=== PATIENT | female | born 1960 | race Caucasian/White ===

== ENCOUNTER → 2018-07-27 | Outpatient (CLI) | payer BC ==
--- NOTE | 2018-07-30 10:12 | MM ---
Reason for exam: screening (asymptomatic). Last mammogram was performed 2 years and 8 months ago. History: Patient is postmenopausal. Family history of breast cancer. Physical Findings: A clinical breast exam by your physician is recommended on an annual basis and results should be correlated with mammographic findings. MG Screening Mammo w CAD Bilateral CC and MLO view(s) were taken. Prior study comparison: December 08, 2015, bilateral MG screening mammo w CAD. November 19, 2014, bilateral MG screening mammo w CAD. There are scattered fibroglandular densities. There is no discrete abnormality. No significant changes when compared with prior studies. ASSESSMENT: Negative, BI-RAD 1 RECOMMENDATION: Routine screening mammogram of both breasts in 1 year.
== END | disposition home or self-care (01) ==
LOC: RADMAMWWP 11:04
PROVIDERS: ATTEND Internal Medicine
DX: Z12.31 Encounter for screening mammogram for malignant neoplasm of breast (principal)
CPT/HCPCS: 77067

== ENCOUNTER → 2020-03-06 | Outpatient (CLI) | payer BC ==
--- NOTE | 2020-03-06 09:33 | US ---
EXAMINATION TYPE: US liver DATE OF EXAM: 03/06/2020 COMPARISON: NONE CLINICAL HISTORY: R74.8 Abnormal liver enzymes. EXAM MEASUREMENTS: Liver Length: 16.4 cm Gallbladder Wall: 0.1 cm CBD: 0.3 cm Right Kidney: 9.6 x 4.4 5.0 cm Thick body habitus with extensive overlying bowel gas, technically difficult study. Pancreas: portions visualized wnl, partially obscured by bowel gas. There may be some moderate fatty atrophy. Liver: Increased attenuation, decreased visualization of vessels suggestive of fatty infiltrate Gallbladder: wnl as seen, partially obscured by overlying bowel gas Evidence for sonographic Nevarez's sign: no CBD: wnl Right Kidney: Superior pole obscured by overlying bowel gas IMPRESSION: 1. Moderate fatty infiltration liver. 2. No suspicious acute ultrasound abnormality is identified. 3. There is limitation due to the volume of bowel gas present and body habitus.
== END | disposition home or self-care (01) ==
LOC: RADUSWWP 08:53
PROVIDERS: ATTEND Internal Medicine
DX: K76.0 Fatty (change of) liver, not elsewhere classified (principal); R14.3 Flatulence
CPT/HCPCS: 76705

== ENCOUNTER → 2021-10-29 | Outpatient (CLI) | payer BC ==
--- NOTE | 2021-10-31 13:37 | US ---
EXAMINATION TYPE: US transvaginal DATE OF EXAM: 10/29/2021 COMPARISON: NONE CLINICAL HISTORY: 61-year-old female N95.0 Postmenopausal bleeding. TECHNIQUE: Transvaginal (TV). FINDINGS: EXAM MEASUREMENTS: Uterus: 6.9 x 3.8 x 4.3 cm Endometrial Stripe: 1.0 cm 1. Uterus: Anteverted. Myometrial assessment is limited due to postioning. There are numerous clus tered cysts at the cervix measuring up to 1.0 cm. 2. Endometrium: Thickened for a postmenopausal female with bleeding. 3. Right Ovary: Obscured by overlying bowel gas 4. Left Ovary: Obscured by overlying bowel gas 5. Bilateral Adnexa: wnl 6. Posterior cul-de-sac: wnl IMPRESSION: 1. Numerous clustered cysts at the cervix measuring up to 1.0 cm most likely numerous cervical naboth janie cysts. Correlate with Pap smear results to exclude the less likely possibility of an etiology suc h as adenoma malignum. 2. Mild endometrial thickening up to 1.0 cm. In a postmenopausal female with bleeding, endometrial hy perplasia or endometrial carcinoma should be excluded. 3. Unable to identify either ovary.
== END | disposition home or self-care (01) ==
LOC: RADUSWWP 16:42
PROVIDERS: ATTEND Internal Medicine
DX: N95.0 Postmenopausal bleeding (principal)
CPT/HCPCS: 76830

== ENCOUNTER → 2021-12-10 | Outpatient (CLI) | payer BC ==
[2021-12-10 17:39] LABS: Basophils # (A) 0.04 X 10*3/uL (0.00-0.10); Basophils % (A) 0.7 %; Eosinophils # (A) 0.19 X 10*3/uL (0.04-0.35); Eosinophils % (A) 3.2 %; HCT 41.8 % (37.2-46.3); HGB 13.9 g/dL (12.0-15.0); Immature Grans, Automated 0.2 %; Lymphocytes # (A) 1.66 X 10*3/uL (0.90-5.00); Lymphocytes % (A) 28.1 %; MCH 30.5 pg (27.0-32.0); MCHC 33.3 g/dL (32.0-37.0); MCV 91.9 fL (80.0-97.0); Mean Platelet Volume 10.7 fL (9.5-12.2); Monocytes # (A) 0.67 X 10*3/uL (0.20-1.00); Monocytes % (A) 11.4 %; NRBC Per 100 WBC 0 /100 WBCS (0.0-0.0); Neutrophils # (A) 3.33 X 10*3/uL (1.80-7.70); Neutrophils % (A) 56.4 %; Platelet Count 228 X 10*3/uL (140-440); RBC 4.55 X 10*6/uL (4.10-5.20); RDW 12.9 % (11.5-14.5)
== END | disposition home or self-care (01) ==
LOC: LABPAT 10:42
PROVIDERS: ATTEND Obstetrics & Gynecology
DX: Z01.812 Encounter for preprocedural laboratory examination (principal)
CPT/HCPCS: 85025; 93005

== ENCOUNTER 2021-12-14 06:15 | Day surgery (SDC) | payer BC ==
[2021-12-10 15:54] VITALS: BMI 33.8
--- NOTE | 2021-12-13 07:35 | P.HPOB ---
History of Present Illness H&P Date: 12/13/21 Chief Complaint: Postmenopausal bleeding and abnormal endometrial thickening on ultrasound This patient is a pleasant 61-year-old 3 para 3 female who is referred to me by Dr. Iniguez for evaluation of postmenopausal bleeding and abnormal endometrial thickening. Patient states that about 2 months ago she began bleeding. She's been menopausal for many years. Transvaginal ultrasound shows an endometrial thickening to 1.0 cm. She now presents for hysteroscopy D&C for further evaluation. Review of Systems Genitourinary: Reports as per HPI, Reports abnormal vaginal bleeding Past Medical History Past Medical History: Hyperlipidemia, Hypertension Additional Past Medical History / Comment(s): hx ulcers 45 yrs ago, post menopause bleeding History of Any Multi-Drug Resistant Organisms: None Reported Past Surgical History: Appendectomy, Orthopedic Surgery Additional Past Surgical History / Comment(s): lt shoulder surgery(fx) with screw placement and rotator cuff, removal of thyroglossal cyst, D&C Past Anesthesia/Blood Transfusion Reactions: No Reported Reaction Smoking Status: Never smoker Past Alcohol Use History: None Reported Past Drug Use History: None Reported - Past Family History Sister(s) Family Medical History: Cancer Medications and Allergies Home Medications Medication Instructions Recorded Confirmed Type Aspirin 81 mg PO DAILY 12/16/13 12/10/21 History Atenolol [Tenormin] 12.5 mg PO HS 12/16/13 12/10/21 History Lisinopril-Hctz 10-12.5 mg 1 each PO DAILY 12/16/13 12/10/21 History [Zestoretic 10-12.5] Atorvastatin [Lipitor] 20 mg PO HS 12/10/21 12/10/21 History Allergies Allergy/AdvReac Type Severity Reaction Status Date / Time No Known Allergies Allergy Verified 12/10/21 15:44 Exam - OBG Physical Exam Abdomen: bowel sounds normal, no diffuse tenderness, no bruit present, no guarding noted, no hepatomegaly, no splenomegaly, no mass Vulva: both: normal Vagina: normal moisture, no discharge Cervix: no lesion, no discharge Results Transvaginal ultrasound on October 29 showed endometrium to be 1.0 cm Assessment and Plan Assessment: This is a pleasant 61-year-old 3 para 3 female with 2 months of postmenopausal bleeding and abnormal thickening of the endometrium on transvaginal ultrasound. Plan is hysteroscopy, D&C for further evaluation. Patient had a long discussion about surgery and risks and risks of infection, bleeding, possible uterine perforation. All the patient's questions are answered written consent is obtained. (1) Postmenopausal bleeding Status: Acute Code(s): N95.0 - POSTMENOPAUSAL BLEEDING SNOMED Code(s): 76652589 (2) Endometrial thickening on ultrasound Status: Acute Code(s): R93.89 - ABNORMAL FINDINGS ON DX IMAGING OF OTH BODY STRUCTURES SNOMED Code(s): 485777324
[~2021-12-14 06:15] MED LIST: DEXAMETHASONE SOD PHOSPHATE 4 MG/ML 1 ML VIAL IV ONE; LACTATED RINGERS 1,000 ML IV SCH; LIDOCAINE 1% (10MG/ML) FOR IV START INTRADERMA PRN; Pre Op ABX Message 1 EACH MISC MISCELLANE ONE
[2021-12-14] MEDS ORDERED: HYDROmorphone 0.5 MG/0.5 ML SYRINGE IVP PRN (07:00)
[2021-12-14] MEDS ORDERED: ONDANSETRON 4 MG/2 ML VIAL IVP PRN (07:00)
[2021-12-14] MEDS ORDERED: KETOROLAC 15 MG/ML 1 ML VIAL ONE (07:19)
[2021-12-14] MEDS ORDERED: MIDAZOLAM 2 MG/2 ML VIAL ONE (07:19)
[2021-12-14] MEDS ORDERED: PROPOFOL 10 MG/ML 20 ML VIAL IV ONE (07:19)
[2021-12-14] MEDS ORDERED: fentaNYL (PF) 50 MCG/ML 2 ML AMP ONE (07:19)
[2021-12-14] MEDS ORDERED: LIDOCAINE 2% INJ 20 MG/ML (2 ML VIAL) ONE (07:19)
--- NOTE | 2021-12-14 07:56 | P.OP ---
Date of Procedure: 12/14/21 Preoperative Diagnosis: #1: Postmenopausal bleeding. #2: Abnormal endometrial thickening on ultrasound Postoperative Diagnosis: #1: Same. #2: Endometrial polyp Procedure(s) Performed: #1: Hysteroscopy. #2: Dilation and curettage. #3: Polypectomy Anesthesia: other (LMA) Surgeon: Enrique Driscoll Estimated Blood Loss (ml): 10 Urine output (ml): 30 Pathology: other (Uterine curettings) Condition: stable Disposition: PACU Indications for Procedure: Please see dictated H&P for intimate details of this patient's admission. Brief summary this is a pleasant 61-year-old 3 para 3 female with 2 months of postmenopausal bleeding ultrasound demonstrating thickening to 1 cm. Patient now presents for hysteroscopy D&C for further evaluation. Patient understands this surgery and risks and risks of infection, bleeding, possible uterine perforation. All the patient's questions are answered and a written consent is obtained. Operative Findings: This patient had a 1-1-1/2 cm endometrial polyp. Rest of the cavity did appear atrophic. Description of Procedure: This patient is taken to the operating room where she is laid in the supine position. She subsequently undergoes general anesthesia without incident. With an adequate level of anesthesia she's placed in dorsal lithotomy position. She has a vaginal perineal prep and drape. Examination under anesthesia shows a normal size uterus. Bladder is then drained for 30 mL of clear urine. Weighted speculum was placed in the posterior vagina and the anterior lip of the cervix is gravid and Allis clamp. The cervix a little stenotic using a hemostat this is opened easily. I then used the uterine sound the uterus is sounded to 8 cm. Gentle dilation of the cervix is then done to allow the hysteroscope easily and uterine cavity. Using saline solution hysteroscopy is performed. Appears to be a large polyp in the central cavity. The rest of the cavity does appear atrophic. The hysteroscope was then removed. The cervix is dilated more to allow a polyp forceps into the uterine cavity. Multiple passes are made with the polyp forceps and a large polyp was removed appears to be intact. This done a vigorous 4 quadrant thorough curettage is then done. This point the procedure is ended. The Allis clamp and weighted speculum removed. All counts are correct 3. There are no complications. Patient is awakened from anesthesia and taken recovery room satisfactory condition.
[2021-12-14 08:01] VITALS: TEMP 97.1
[2021-12-14 09:05] VITALS: RESP 18
[2021-12-14 09:06] VITALS: BP 107/74; PULSE 61
== END 2021-12-14 09:24 | disposition home or self-care (01) ==
LOC: OR 06:15
PROVIDERS: ATTEND Obstetrics & Gynecology
DX: C54.1 Malignant neoplasm of endometrium (principal); N84.0 Polyp of corpus uteri; N95.0 Postmenopausal bleeding; I10 Essential (primary) hypertension; E78.5 Hyperlipidemia, unspecified; Z90.49 Acquired absence of other specified parts of digestive tract; Z80.9 Family history of malignant neoplasm, unspecified; Z79.82 Long term (current) use of aspirin; Z79.899 Other long term (current) drug therapy
CPT/HCPCS: 88305; 58558; J2250; J1100; J2405; J3010; J1885; J2704; J2001

== ENCOUNTER → 2022-01-14 | Outpatient (CLI) | payer BC ==
--- NOTE | 2022-01-14 15:08 | XR ---
EXAMINATION TYPE: XR chest 2V DATE OF EXAM: 01/14/2022 COMPARISON: None INDICATION: Malignant neoplasm of the endometrium presurgical clearance TECHNIQUE: Frontal and lateral views of the chest are obtained. FINDINGS: The heart size is normal. The pulmonary vasculature is normal. The lungs are clear. Radiopaque foreign body overlies the glenohumeral junction on the AP projection . IMPRESSION: 1. No acute pulmonary process.
--- NOTE | 2022-01-14 21:32 | CT ---
EXAMINATION TYPE: CT abdomen pelvis w con CT DLP: 1187.3 mGycm, Automated exposure control for dose reduction was used. DATE OF EXAM: 01/14/2022 5:04 PM COMPARISON: None CLINICAL INDICATION:Female, 61 years old with history of C54.1 MALIGNANT NEOPLASM OF ENDOMETRIUM; MAL IGNANT NEOPLASM OF ENDOMETRIUM TECHNIQUE: Axial CT of the abdomen and pelvis. Sagittal and coronal reformats were created on a [employer] workstation. Contrast used:100ml mL of Isovue 300 with IV Contrast, Oral contrast used: with Oral Contrast FINDINGS: LOWER CHEST: Unremarkable ABDOMEN LIVER: Diffusely hypoattenuating parenchyma. GALLBLADDER AND BILE DUCTS: Unremarkable. PANCREAS: Unremarkable. SPLEEN: Unremarkable. ADRENAL GLANDS: Unremarkable. KIDNEYS AND URETERS: No evidence of hydronephrosis or renal calculus. The ureters are unremarkable. PELVIS BLADDER: Unremarkable REPRODUCTIVE: Endometrium is suboptimally visualized. Slightly asymmetric enlarged left ovary versus the right. ABDOMEN & PELVIS STOMACH AND BOWEL: There is a second portion duodenal diverticulum. Multiple colonic diverticula. No evidence of bowel obstruction. PERITONEUM: No evidence of pneumoperitoneum or free fluid. VASCULATURE: No evidence of aortic aneurysm. MUSCULOSKELETAL: No acute osseous abnormalities LYMPH NODES: No gross evidence for lymphadenopathy. SOFT TISSUE/ABDOMINAL WALL: Unremarkable IMPRESSION: 1. Grossly unremarkable appearance of the uterus. There is no evidence for metastatic disease through out the abdomen or pelvis. 2. Colonic diverticulosis. 3. Duodenal diverticulum. 4. Hepatic steatosis.
== END | disposition home or self-care (01) ==
LOC: RADCTMAIN 14:35
PROVIDERS: ATTEND Obstetrics & Gynecology
DX: C54.1 Malignant neoplasm of endometrium (principal)
CPT/HCPCS: 71046; 74177; Q9967

== ENCOUNTER → 2022-02-15 | Outpatient (CLI) | payer BC ==
--- NOTE | 2022-02-16 09:49 | MM ---
Reason for Exam: Screening (asymptomatic). Last mammogram was performed 3 year(s) and 6 month(s) ago. Patient History: Menarche at age 13. First Full-Term at age 31. Late child-bearing (after 31). Left ovary removed at age 61. Right ovary removed at age 61. Hysterectomy at age 61. Postmenopausal. Endometrial cancer, age 61. Risk Values: Fifi 5 year model risk: 2.0%. NCI Lifetime model risk: 10.0%. Prior Study Comparison: 11/19/2014 Bilateral Screening Mammogram, [facility]. 12/08/2015 Bilateral Screening Mammogram, [facility]. 07/27/2018 Bilateral Screening Mammogram, [facility]. Tissue Density: There are scattered fibroglandular densities. Findings: Analyzed By CAD. There is no suspicious group of microcalcifications or new suspicious mass in either breast. Overall Assessment: Negative, BI-RAD 1 Management: Screening Mammogram of both breasts in 1 year. A clinical breast exam by your physician is recommended on an annual basis and results should be correlated with mammographic findings. Electronically signed and approved by: Rickie Alejo M.D.
== END | disposition home or self-care (01) ==
LOC: RADMAMWWP 07:48
PROVIDERS: ATTEND Internal Medicine
DX: Z12.31 Encounter for screening mammogram for malignant neoplasm of breast (principal)
CPT/HCPCS: 77063; 77067

== ENCOUNTER → 2022-10-19 | Outpatient (CLI) | payer BC ==
[2022-10-19 15:23] LABS: % Iron Saturation 26.03 (12.00-45.00); Ferritin 95.7 ng/mL (10.0-291.0)
[2022-10-19 15:36] LABS: Albumin 4.3 g/dL (3.8-4.9); Albumin/Globulin Ratio 1.19 (1.60-3.17); Anion Gap 15.5 mmol/L (10.00-18.00); BUN/Creat Ratio 11.78 Ratio (12.00-20.00); Blood Urea Nitrogen 10.6 mg/dL (9.0-27.0); Carbon Dioxide 23.5 mmol/L (20.0-27.5); Globulin 3.6 g/dL (1.6-3.3); Potassium 5.3 mmol/L (3.5-5.5); Total Bilirubin 0.6 mg/dL (0.30-1.20); Total Protein 7.9 g/dL (6.2-8.2)
[2022-10-19 15:56] LABS: Hepatitis C IgG Antibody Nonreactive (Nonreactive)
[2022-10-19 16:43] LABS: Ceruloplasmin 23.9 mg/dL (20.0-60.0)
[2022-10-19 18:15] LABS: Hepatitis B Surface Antigen Nonreactive (Nonreactive)
== END | disposition home or self-care (01) ==
LOC: LABWHC1 09:36
PROVIDERS: ATTEND Internal Medicine Gastroenterology
DX: R74.01 Elevation of levels of liver transaminase levels (principal)
CPT/HCPCS: 36415; 80053; 82103; 82390; 82728; 83540; 83550; 86038; 86803; 87340

== ENCOUNTER → 2022-11-09 | Outpatient (CLI) | payer BC ==
--- NOTE | 2022-11-09 13:44 | US ---
EXAMINATION TYPE: US liver DATE OF EXAM: 11/09/2022 COMPARISON: US CLINICAL INDICATION: Female, 62 years old with history of R74.01 ELEVATION OF LEVELS OF LIVER TRANSAM INASE L; Abnormal LFT's TECHNIQUE: Multiple sonographic images of the right upper quadrant are obtained. 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 Mild hepatomegaly.
== END | disposition home or self-care (01) ==
LOC: RADUSWWP 08:41
PROVIDERS: ATTEND Internal Medicine Gastroenterology
DX: R16.0 Hepatomegaly, not elsewhere classified (principal); R74.01 Elevation of levels of liver transaminase levels
CPT/HCPCS: 76705

== ENCOUNTER → 2023-02-22 | Outpatient (CLI) | payer BC ==
--- NOTE | 2023-02-23 08:50 | MM ---
Reason for Exam: Screening (asymptomatic). Last mammogram was performed 1 year(s) and 1 month(s) ago. Patient History: Menarche at age 13. First Full-Term at age 31. Late child-bearing (after 31). Left ovary removed at age 61. Right ovary removed at age 61. Hysterectomy at age 61. Postmenopausal. Endometrial cancer, age 61. Risk Values: Fifi 5 year model risk: 2.0%. NCI Lifetime model risk: 9.7%. Prior Study Comparison: 12/08/2015 Bilateral Screening Mammogram, [facility]. 07/27/2018 Bilateral Screening Mammogram, [facility]. 02/15/2022 Bilateral MG 3D screening mammo w/cad, [facility]. Tissue Density: The breast tissue is almost entirely fat. Findings: Analyzed By CAD. There is no suspicious group of microcalcifications or new suspicious mass in either breast. Overall Assessment: Negative, BI-RAD 1 Management: Screening Mammogram of both breasts in 1 year. . Patient should continue monthly self-breast exams. A clinical breast exam by your physician is recommended on an annual basis. This exam should not preclude additional follow-up of suspicious palpable abnormalities. Note on Fifi scores and lifetime risk: 1. A Fifi score greater than 3% is considered moderate risk. If this is the case, consider specialist referral to assess eligibility for a risk reducing agent. 2. If overall lifetime risk for the development of breast cancer is 20% or higher, the patient may qualify for future screening with alternating mammogram and breast MRI. Electronically signed and approved by: Enrique Rangel M.D. Radiologis
== END | disposition home or self-care (01) ==
LOC: RADMAMWWP 15:43
PROVIDERS: ATTEND Internal Medicine
DX: Z12.31 Encounter for screening mammogram for malignant neoplasm of breast (principal); Z78.0 Asymptomatic menopausal state
CPT/HCPCS: 77067

== ENCOUNTER → 2024-02-29 | Outpatient (CLI) | payer BC ==
--- NOTE | 2024-03-04 09:38 | MM ---
Reason for Exam: Screening (asymptomatic). Last screening mammogram was performed 12 month(s) ago. Patient History: Menarche at age 13. First Full-Term at age 31. Late child-bearing (after 31). Left ovary removed at age 61. Right ovary removed at age 61. Hysterectomy at age 61. Postmenopausal. Endometrial cancer, age 61. Risk Values: Fifi 5 year model risk: 2.1%. NCI Lifetime model risk: 9.4%. Prior Study Comparison: 07/27/2018 Bilateral Screening Mammogram, [facility]. 02/15/2022 Bilateral MG 3D screening mammo w/cad, [facility]. 02/22/2023 Bilateral MG screening mammo w CAD, [facility]. Tissue Density: The breasts are almost entirely fatty. Findings: Analyzed By CAD. Right breast: There is no suspicious group of microcalcifications or new suspicious mass. Left breast: There is no suspicious group of microcalcifications or new suspicious mass. Overall Assessment: Negative, BI-RAD 1 Management: Screening Mammogram of both breasts in [address] [facility] will attempt to contact patient to return for supplemental views and ultrasound if indicated. Patient should continue monthly self-breast exams. A clinical breast exam by your physician is recommended on an annual basis. This exam should not preclude additional follow-up of suspicious palpable abnormalities. Note on Fifi scores and lifetime risk: 1. A Fiif score greater than 3% is considered moderate risk. If this is the case, consider specialist referral to assess eligibility for a risk reducing agent. 2. If overall lifetime risk for the development of breast cancer is 20% or higher, the patient may qualify for future screening with alternating mammogram and breast MRI. [facility], , 03/04/2024 9:35 AM. Electronically signed and approved by: Jermain Nye DO
== END | disposition home or self-care (01) ==
LOC: RADMAMWWP 15:57
PROVIDERS: ATTEND Internal Medicine
DX: Z12.31 Encounter for screening mammogram for malignant neoplasm of breast
CPT/HCPCS: 77067